=== PATIENT | female | born 1970 | race African-American/Black ===

== ENCOUNTER 2020-11-19 19:36 | Emergency (ER) | payer SELFPAY ==
[2020-11-19] MEDS ORDERED: Ondansetron ODT 4 MG TAB ONE (20:20)
[2020-11-20 23:29] LABS: SARS-CoV-2 PCR by NAA Not Detected (NotDetected)
== END 2020-11-19 20:25 | disposition home or self-care (01) ==
LOC: BURERS 19:36
DX: R11.2 Nausea with vomiting, unspecified (principal); R19.7 Diarrhea, unspecified; R53.1 Weakness; R43.8 Other disturbances of smell and taste; I10 Essential (primary) hypertension; Z20.822 Contact with and (suspected) exposure to COVID-19
CPT/HCPCS: 36416; 99284; Q0162; U0003; U0005

== ENCOUNTER 2020-11-25 12:14 | Emergency (ER) | payer SELFPAY ==
[2020-11-26 18:41] LABS: SARS-CoV-2 PCR by NAA Not Detected (NotDetected)
== END 2020-11-25 13:05 | disposition home or self-care (01) ==
LOC: BURERS 12:14
DX: B34.9 Viral infection, unspecified (principal); Z20.822 Contact with and (suspected) exposure to COVID-19
CPT/HCPCS: 99284; U0003; U0005

== ENCOUNTER 2021-01-06 11:42 | Emergency (ER) | payer BC ==
[~2021-01-06 11:42] MED LIST: NS 0.9% w/ 40 MEQ KCL 1,000 ML BAG IV ONE
[2021-01-06 12:47] LABS: #Basophils 0.1 thou/uL (0.0-0.2); #Monocytes 0.6 thou/uL (0.11-0.59); #Neutrophils 4.9 thou/uL (1.40-6.50); %Basophils 0.9 % (0.0-1.0); %Eosinophils 0.1 % (0.0-10.0); %Lymphocytes 14.7 % (21.0-51.0); %Monocytes 9.1 % (0.0-10.0); %Neutrophils 75.2 % (42.0-75.0); Hemoglobin 13.3 g/dL (12.0-16.0); Mean Corpuscular HGB CONC 36.2 g/dL (32.0-36.0); Mean Corpuscular Hemoglobin 37.3 pg (27.0-31.0); Mean Platelet Volume 7.6 fL (7.4-10.4); Platelet Count 364 thou/uL (130-400); RBC Distribution Width 12.3 % (11.5-14.5); Red Blood Cell (RBC) Count 3.58 mill/uL (4.20-5.40); White Blood Cell (WBC) Count 6.5 thou/uL (4.8-10.8)
[2021-01-06 12:49] LABS: ALT (SGPT) 13 U/L (8-55); AST (SGOT) 23 U/L (5-34); Albumin 4.3 g/dL (3.5-5.0); Alkaline Phosphatase 45 U/L (40-110); Anion Gap 23 mmol/L (10-20); BUN (Urea Nitrogen) 30 mg/dL (9.8-20.1); Bilirubin, Total 1.7 mg/dL (0.2-1.2); Calc. Creatinine Clearance 0 mL/min (70-130); Calcium 9.4 mg/dL (7.8-10.44); Carbon Dioxide 38 mmol/L (22-29); Glucose 119 mg/dL (70-105); Protein, Total 7.3 g/dL (6.0-8.3)
[2021-01-06 12:52] LABS: Chloride 81 mmol/L (98-107); Sodium 140 mmol/L (136-145)
[2021-01-06 13:00] LABS: MDiff Complete? YES; Macrocytosis SLIGHT = 6-15 cells (100X) (0-5/hpf); Platelet Morphology Comment Appears Adequate
[2021-01-06 13:04] LABS: Potassium 1.7 mmol/L (3.5-5.1)
[2021-01-06] MEDS ORDERED: Potassium Chloride 20 MEQ TAB ONE ×2 (13:08→13:11)
[2021-01-06 13:29] LABS: Magnesium 1.4 mg/dL (1.6-2.6)
[2021-01-06] MEDS ORDERED: Magnesium 2 GM/50 ML BAG (IN WATER) ONE (13:48)
== END 2021-01-06 16:30 | disposition home or self-care (01) ==
LOC: BURERS 11:42
DX: E87.6 Hypokalemia (principal); I10 Essential (primary) hypertension
CPT/HCPCS: 36415; 70450; 71045; 80053; 83735; 83880; 84484; 85025; 93005; 96365; J3475; J3480

== ENCOUNTER 2021-01-15 20:19 | Emergency (ER) | payer BC ==
[2021-01-15] MEDS ORDERED: traMADol HCl 50 MG TAB ONE (21:06)
[2021-01-15] MEDS ORDERED: Ketorolac Tromethamine 30 MG/ML VIAL ONE (21:06)
== END 2021-01-15 21:11 | disposition home or self-care (01) ==
LOC: BURERS 20:19
DX: G62.9 Polyneuropathy, unspecified (principal); G89.29 Other chronic pain; I10 Essential (primary) hypertension
CPT/HCPCS: 96372; 99283; J1885

== ENCOUNTER 2021-01-24 13:52 | Emergency (ER) | payer BC ==
[2021-01-24] MEDS ORDERED: Ketorolac Tromethamine 30 MG/ML VIAL ONE (14:29)
[2021-01-24 14:31] LABS: #Basophils 0.1 thou/uL (0.0-0.2); #Eosinphils 0.3 thou/uL (0.0-0.7); #Lymphocytes 1.6 thou/uL (1.20-3.40); #Monocytes 0.3 thou/uL (0.11-0.59); #Neutrophils 3.4 thou/uL (1.40-6.50); %Basophils 1.2 % (0.0-1.0); %Eosinophils 4.6 % (0.0-10.0); %Monocytes 5.7 % (0.0-10.0); %Neutrophils 60.4 % (42.0-75.0); Hemoglobin 11.1 g/dL (12.0-16.0); Mean Corpuscular HGB CONC 33.9 g/dL (32.0-36.0); Mean Corpuscular Hemoglobin 36.9 pg (27.0-31.0); Mean Platelet Volume 5.6 fL (7.4-10.4); Platelet Count 557 thou/uL (130-400); RBC Distribution Width 14.5 % (11.5-14.5); Red Blood Cell (RBC) Count 3.01 mill/uL (4.20-5.40); White Blood Cell (WBC) Count 5.5 thou/uL (4.8-10.8)
[2021-01-24 14:49] LABS: ALT (SGPT) 15 U/L (8-55); AST (SGOT) 26 U/L (5-34); Albumin 3.4 g/dL (3.5-5.0); Alcohol 147 mg/dL (Less than 10); Alkaline Phosphatase 66 U/L (40-110); Anion Gap 19 mmol/L (10-20); BUN (Urea Nitrogen) 17 mg/dL (9.8-20.1); Bilirubin, Total 0.6 mg/dL (0.2-1.2); Calc. Creatinine Clearance 0 mL/min (70-130); Calcium 9.9 mg/dL (7.8-10.44); Carbon Dioxide 26 mmol/L (22-29); Chloride 105 mmol/L (98-107); Globulin 3.4 g/dL (2.4-3.5); Glucose 94 mg/dL (70-105); Potassium 3.2 mmol/L (3.5-5.1); Protein, Total 6.8 g/dL (6.0-8.3); Sodium 147 mmol/L (136-145)
[2021-01-24] MEDS ORDERED: traMADol HCl 50 MG TAB ONE (15:06)
[2021-01-24] MEDS ORDERED: Thiamine HCl 200 MG/2 ML VIAL ONE (15:06)
[2021-01-24 15:10] LABS: MDiff Complete? YES; Macrocytosis MODERATE=16-30 cells (100X) (0-5/hpf); Platelet Morphology Comment Appears Increased
== END 2021-01-24 15:33 | disposition home or self-care (01) ==
LOC: BURERS 13:52
DX: G62.9 Polyneuropathy, unspecified (principal); F10.129 Alcohol abuse with intoxication, unspecified; I10 Essential (primary) hypertension; E87.6 Hypokalemia; Z79.899 Other long term (current) drug therapy
CPT/HCPCS: 80053; 80307; 85025; 96374; 96375; J1885; J3411

== ENCOUNTER 2021-01-28 13:54 | Emergency (ER) | payer BC ==
[2021-01-28] MEDS ORDERED: Thiamine HCl 200 MG/2 ML VIAL ONE (14:38)
[2021-01-28 15:11] LABS: #Eosinphils 0.1 thou/uL (0.0-0.7); #Monocytes 0.4 thou/uL (0.11-0.59); %Basophils 0.6 % (0.0-1.0); %Eosinophils 1.9 % (0.0-10.0); %Monocytes 5.8 % (0.0-10.0); %Neutrophils 76.7 % (42.0-75.0); Hemoglobin 9.1 g/dL (12.0-16.0); Mean Corpuscular Hemoglobin 36.9 pg (27.0-31.0); Mean Platelet Volume 5.4 fL (7.4-10.4); Platelet Count 376 thou/uL (130-400); RBC Distribution Width 14.9 % (11.5-14.5); Red Blood Cell (RBC) Count 2.46 mill/uL (4.20-5.40); White Blood Cell (WBC) Count 6.6 thou/uL (4.8-10.8)
[2021-01-28 15:12] LABS: MDiff Complete? YES
[2021-01-28 15:19] LABS: ALT (SGPT) 11 U/L (8-55); AST (SGOT) 20 U/L (5-34); Albumin 2.9 g/dL (3.5-5.0); Alkaline Phosphatase 54 U/L (40-110); Anion Gap 14 mmol/L (10-20); BUN (Urea Nitrogen) 17 mg/dL (9.8-20.1); Bilirubin, Total 1.5 mg/dL (0.2-1.2); Calc. Creatinine Clearance 0 mL/min (70-130); Calcium 8.2 mg/dL (7.8-10.44); Carbon Dioxide 22 mmol/L (22-29); Chloride 108 mmol/L (98-107); Globulin 2.6 g/dL (2.4-3.5); Glucose 98 mg/dL (70-105); Lipase 120 U/L (8-78); Magnesium 1.5 mg/dL (1.6-2.6); Potassium 3.6 mmol/L (3.5-5.1); Protein, Total 5.5 g/dL (6.0-8.3); Sodium 140 mmol/L (136-145)
== END 2021-01-28 15:36 | disposition home or self-care (01) ==
LOC: BURERS 13:54
DX: R55 Syncope and collapse (principal); I10 Essential (primary) hypertension; Z79.899 Other long term (current) drug therapy
CPT/HCPCS: 36415; 80053; 83690; 83735; 85025; 96374; J3411

== ENCOUNTER 2021-05-30 23:30 | Emergency (ER) | payer BC, SELFPAY ==
[2021-05-31 01:01] LABS: #Monocytes 0.5 thou/uL (0.11-0.59); #Neutrophils 3.9 thou/uL (1.40-6.50); %Basophils 0.7 % (0.0-1.0); %Eosinophils 0.1 % (0.0-10.0); %Lymphocytes 17.6 % (21.0-51.0); %Monocytes 9.5 % (0.0-10.0); %Neutrophils 72.1 % (42.0-75.0); Hemoglobin 11.2 g/dL (12.0-16.0); Mean Corpuscular HGB CONC 33.8 g/dL (32.0-36.0); Mean Corpuscular Hemoglobin 36.1 pg (27.0-31.0); Mean Platelet Volume 9.2 fL (7.4-10.4); Platelet Count 113 thou/uL (130-400); RBC Distribution Width 14.8 % (11.5-14.5); White Blood Cell (WBC) Count 5.5 thou/uL (4.8-10.8)
[2021-05-31 01:05] LABS: ALT (SGPT) 25 U/L (8-55); AST (SGOT) 104 U/L (5-34); Albumin 4.1 g/dL (3.5-5.0); Alkaline Phosphatase 70 U/L (40-110); Anion Gap 39 mmol/L (10-20); BUN (Urea Nitrogen) 11 mg/dL (9.8-20.1); Bilirubin, Total 3.4 mg/dL (0.2-1.2); Calc. Creatinine Clearance 0 mL/min (70-130); Calcium 9.7 mg/dL (7.8-10.44); Carbon Dioxide 19 mmol/L (22-29); Chloride 86 mmol/L (98-107); Globulin 3.6 g/dL (2.4-3.5); Glucose 66 mg/dL (70-105); Potassium 3.2 mmol/L (3.5-5.1); Protein, Total 7.7 g/dL (6.0-8.3); Sodium 141 mmol/L (136-145)
[2021-05-31 01:23] LABS: CKMB 0.9 ng/mL (0-6.6)
[2021-05-31 03:16] LABS: MDiff Complete? YES; Macrocytosis MODERATE=16-30 cells (100X) (0-5/hpf); Platelet Morphology Comment Appears Decreased
[2021-05-31 03:35] LABS: Troponin I 0.059 ng/mL (< 0.028)
[2021-05-31 05:19] LABS: Bilirubin Negative (Negative); Blood, Urine Trace (Negative); Clarity Clear (Clear); Glucose, Urine (Dipstick) Negative (Negative); Ketone, Urine > or equal to 80 mg/dL (Negative); Leukocyte Trace (Negative); Nitrite Positive (Negative); Protein, Urine (Dipstick) 30 mg/dL (Neg-Trace)
[2021-05-31 05:20] LABS: Bacteria/HPF 2+ HPF (None Seen); RBC/HPF 0-3 HPF (0-3); Squamous Epithelial 0-3 HPF (0-3); WBC/HPF 0-3 HPF (0-3)
[2021-05-31] MEDS ORDERED: Morphine 4 MG/ML VIAL ONE (06:06)
[2021-05-31 07:16] LABS: Troponin I 0.085 ng/mL (< 0.028)
[2021-05-31] MEDS ORDERED: Aspirin Chewable 81 MG TAB ONE (08:59)
[2021-05-31] MEDS ORDERED: Sodium Chloride 0.9% 100 ML ONE (09:45)
[2021-05-31] MEDS ORDERED: cefTRIAXone\\ROCEPHIN 1 GM VIAL ONE (09:45)
== END 2021-05-31 11:36 | disposition short-term general hospital (02) ==
LOC: BURERS 23:30
DX: E86.0 Dehydration (principal); K85.90 Acute pancreatitis without necrosis or infection, unspecified; N39.0 Urinary tract infection, site not specified; R53.1 Weakness; R77.8 Other specified abnormalities of plasma proteins; R00.0 Tachycardia, unspecified; I10 Essential (primary) hypertension
CPT/HCPCS: 36415; 36416; 71045; 71275; 80053; 81003; 81015; 82553; 83690; 83880; 84484; 85025; 87077; 87086; 87186; 93005; 96374; 96375; J0696; J2270; J3490

== ENCOUNTER 2021-09-04 13:26 | Emergency (ER) | payer BC ==
[2021-09-04 14:24] LABS: #Basophils 0.1 thou/uL (0.0-0.2); #Eosinphils 0.1 thou/uL (0.0-0.7); #Monocytes 0.3 thou/uL (0.11-0.59); #Neutrophils 2.2 thou/uL (1.40-6.50); %Basophils 1.2 % (0.0-1.0); %Eosinophils 1.7 % (0.0-10.0); %Lymphocytes 42.9 % (21.0-51.0); %Monocytes 6.7 % (0.0-10.0); %Neutrophils 47.5 % (42.0-75.0); Hemoglobin 13.5 g/dL (12.0-16.0); Mean Corpuscular HGB CONC 35.8 g/dL (32.0-36.0); Mean Corpuscular Hemoglobin 36.3 pg (27.0-31.0); Mean Platelet Volume 7.5 fL (7.4-10.4); Platelet Count 259 thou/uL (130-400); RBC Distribution Width 14.1 % (11.5-14.5); Red Blood Cell (RBC) Count 3.72 mill/uL (4.20-5.40); White Blood Cell (WBC) Count 4.7 thou/uL (4.8-10.8)
[2021-09-04 14:38] LABS: MDiff Complete? YES; Macrocytosis SLIGHT = 6-15 cells (100X) (0-5/hpf); Tear Drops SLIGHT = 2-5 cells (100X) (0-1/hpf)
[2021-09-04 14:45] LABS: ALT (SGPT) 12 U/L (8-55); AST (SGOT) 25 U/L (5-34); Albumin 3.2 g/dL (3.5-5.0); Alkaline Phosphatase 49 U/L (40-110); Anion Gap 14 mmol/L (10-20); BUN (Urea Nitrogen) 10 mg/dL (9.8-20.1); Bilirubin, Total 1.8 mg/dL (0.2-1.2); Calc. Creatinine Clearance 0 mL/min (70-130); Calcium 8.5 mg/dL (7.8-10.44); Carbon Dioxide 31 mmol/L (22-29); Chloride 98 mmol/L (98-107); Estimated GFR 34; Globulin 2.9 g/dL (2.4-3.5); Glucose 78 mg/dL (70-105); Magnesium 1.6 mg/dL (1.6-2.6); Protein, Total 6.1 g/dL (6.0-8.3); Sodium 141 mmol/L (136-145)
[2021-09-04 15:22] LABS: Potassium 1.7 mmol/L (3.5-5.1)
[2021-09-04 16:09] LABS: Bilirubin Negative (Negative); Blood, Urine Negative (Negative); Clarity Clear (Clear); Glucose, Urine (Dipstick) Negative (Negative); Ketone, Urine Negative (Negative); Leukocyte Small (Negative); Nitrite Negative (Negative); Protein, Urine (Dipstick) Negative (Neg-Trace); Specific Gravity, Urine 1.015 (1.005-1.030); Urobilinogen 0.2 mg/dL (Less than 2)
[2021-09-04 16:18] LABS: Bacteria/HPF Rare-Few HPF (None Seen); RBC/HPF 0-3 HPF (0-3); Squamous Epithelial 0-3 HPF (0-3); Trichomonas/HPF Rare HPF (None Seen); WBC/HPF 0-3 HPF (0-3)
[2021-09-04 16:19] LABS: Anion Gap 14 mmol/L (10-20); BUN (Urea Nitrogen) 9 mg/dL (9.8-20.1); Calc. Creatinine Clearance 0 mL/min (70-130); Calcium 7.8 mg/dL (7.8-10.44); Carbon Dioxide 28 mmol/L (22-29); Chloride 100 mmol/L (98-107); Estimated GFR 41; Glucose 123 mg/dL (70-105); Sodium 140 mmol/L (136-145)
[2021-09-04 16:27] LABS: Potassium 1.7 mmol/L (3.5-5.1)
[2021-09-04] MEDS ORDERED: Acetaminophen 500 MG TAB ONE (16:35)
[2021-09-04] MEDS ORDERED: Potassium Chloride 20 MEQ TAB ONE (16:35)
== END 2021-09-04 16:38 | disposition left against medical advice (07) ==
LOC: BURERS 13:26
DX: E87.6 Hypokalemia (principal); I10 Essential (primary) hypertension; E11.9 Type 2 diabetes mellitus without complications
CPT/HCPCS: 36415; 80053; 81003; 81015; 83735; 84443; 84484; 85025; 93005; 96360

== ENCOUNTER 2022-02-19 19:51 | Emergency (ER) | payer BC ==
[2022-02-19] MEDS ORDERED: Ibuprofen 200 MG TAB ONE (21:29)
== END 2022-02-19 22:04 | disposition home or self-care (01) ==
LOC: BURERS 19:51
DX: S80.11XA Contusion of right lower leg, initial encounter (principal); S60.221A Contusion of right hand, initial encounter; I10 Essential (primary) hypertension; E11.9 Type 2 diabetes mellitus without complications; Z79.899 Other long term (current) drug therapy; V89.2XXA Person injured in unspecified motor-vehicle accident, traffic, initial encounter

== ENCOUNTER 2022-03-06 01:39 | Emergency (ER) | payer BC | END 2022-03-06 02:40 | disposition home or self-care (01) | LOC: BURERS 01:39 | DX: Z00.00 Encounter for general adult medical examination without abnormal findings (principal); E11.9 Type 2 diabetes mellitus without complications; I10 Essential (primary) hypertension; Z79.899 Other long term (current) drug therapy | CPT/HCPCS: 36416; 99283 ==

== ENCOUNTER 2022-03-16 16:47 | Emergency (ER) | payer BC ==
[2022-03-16 17:40] LABS: #Basophils 0.1 thou/uL (0.0-0.2); #Eosinphils 0.1 thou/uL (0.0-0.7); #Lymphocytes 1.6 thou/uL (1.20-3.40); #Monocytes 0.4 thou/uL (0.11-0.59); #Neutrophils 4.4 thou/uL (1.40-6.50); %Basophils 0.8 % (0.0-1.0); %Eosinophils 1.4 % (0.0-10.0); %Lymphocytes 24.4 % (21.0-51.0); %Monocytes 6.5 % (0.0-10.0); %Neutrophils 66.9 % (42.0-75.0); Hemoglobin 12.7 g/dL (12.0-16.0); Mean Corpuscular HGB CONC 33.9 g/dL (32.0-36.0); Mean Corpuscular Hemoglobin 39.8 pg (27.0-31.0); Mean Platelet Volume 6.8 fL (7.4-10.4); Platelet Count 178 10x3/uL (130-400); Red Blood Cell (RBC) Count 3.18 mill/uL (4.20-5.40); White Blood Cell (WBC) Count 6.6 10x3/uL (4.8-10.8)
[2022-03-16 17:51] LABS: INR-International Normal Ratio 0.9; Prothrombin Time 12.7 sec (12.0-14.7)
[2022-03-16 17:58] LABS: ALT (SGPT) 17 U/L (8-55); AST (SGOT) 55 U/L (5-34); Acetaminophen Less than 10.0 mcg/mL (10.0-30.0); Albumin 4.2 g/dL (3.5-5.0); Alcohol 284 mg/dL (Less than 10); Alkaline Phosphatase 114 U/L (40-110); Anion Gap 22 mmol/L (10-20); BUN (Urea Nitrogen) 15 mg/dL (9.8-20.1); Calc. Creatinine Clearance 0 mL/min (70-130); Calcium 9.6 mg/dL (7.8-10.44); Carbon Dioxide 21 mmol/L (22-29); Chloride 105 mmol/L (98-107); Estimated GFR 69; Globulin 3.6 g/dL (2.4-3.5); Glucose 72 mg/dL (70-105); Potassium 3.6 mmol/L (3.5-5.1); Protein, Total 7.8 g/dL (6.0-8.3); Salicylate Less than 8.0 mg/dL (15.0-30.0); Sodium 144 mmol/L (136-145)
[2022-03-16 18:14] LABS: MDiff Complete? YES; Macrocytosis SLIGHT = 6-15 cells (100X) (0-5/hpf); Platelet Morphology Comment Appears Adequate
[2022-03-16] MEDS ORDERED: Lidocaine 4% Cream 5 GM TUBE w/ Tegaderm ONE (18:21)
[2022-03-16] MEDS ORDERED: Bacitracin 1 PK ONE (19:21)
[2022-03-16] MEDS ORDERED: Cephalexin 250 MG CAP ONE (19:29)
== END 2022-03-16 19:33 | disposition home or self-care (01) ==
LOC: BURERS 16:47
DX: S09.90XA Unspecified injury of head, initial encounter (principal); S00.81XA Abrasion of other part of head, initial encounter; S81.812A Laceration without foreign body, left lower leg, initial encounter; I10 Essential (primary) hypertension; E11.42 Type 2 diabetes mellitus with diabetic polyneuropathy; W18.00XA Striking against unspecified object with subsequent fall, initial encounter; Z79.899 Other long term (current) drug therapy
CPT/HCPCS: 36415; 70450; 72125; 80053; 80307; 85025; 85610

== ENCOUNTER 2022-03-25 02:36 | Emergency (ER) | payer BC ==
[2022-03-25] MEDS ORDERED: Bacitracin 1 PK ONE (02:45)
[2022-03-25] MEDS ORDERED: Acetaminophen 325 MG TAB ONE (02:45)
[2022-03-25] MEDS ORDERED: Doxycycline 100 MG CAP ONE (03:01)
[2022-03-25] MEDS ORDERED: Boostrix 0.5 ML (Tdap) VIAL (>/=7 yrs of age) ONE (03:17)
== END 2022-03-25 03:37 | disposition home or self-care (01) ==
LOC: BURERS 02:36
DX: S00.81XA Abrasion of other part of head, initial encounter (principal); S80.812A Abrasion, left lower leg, initial encounter; L08.9 Local infection of the skin and subcutaneous tissue, unspecified; E11.9 Type 2 diabetes mellitus without complications; I10 Essential (primary) hypertension; Z79.899 Other long term (current) drug therapy; X58.XXXA Exposure to other specified factors, initial encounter
CPT/HCPCS: 90471; 90715

== ENCOUNTER 2022-06-19 14:08 | Emergency (ER) | payer BC ==
[2022-06-19] MEDS ORDERED: Ketorolac Tromethamine 30 MG/ML VIAL ONE (15:03)
[2022-06-19] MEDS ORDERED: Ondansetron PF 4 MG/2 ML Vial ONE (15:03)
[2022-06-19 15:15] LABS: Hemoglobin 12.2 g/dL (12.0-16.0); Mean Corpuscular HGB CONC 32.3 g/dL (32.0-36.0); Mean Corpuscular Hemoglobin 40.3 pg (27.0-31.0); Mean Platelet Volume 6.9 fL (7.4-10.4); Platelet Count 284 10x3/uL (130-400); RBC Distribution Width 13.8 % (11.5-14.5); Red Blood Cell (RBC) Count 3.02 mill/uL (4.20-5.40)
[2022-06-19 15:27] LABS: ALT (SGPT) 20 U/L (8-55); AST (SGOT) 64 U/L (5-34); Albumin 4.2 g/dL (3.5-5.0); Alkaline Phosphatase 83 U/L (40-110); Anion Gap 23 mmol/L (10-20); BUN (Urea Nitrogen) 8 mg/dL (9.8-20.1); Bilirubin, Total 2.1 mg/dL (0.2-1.2); Calc. Creatinine Clearance 0 mL/min (70-130); Calcium 9.1 mg/dL (7.8-10.44); Carbon Dioxide 21 mmol/L (22-29); Chloride 96 mmol/L (98-107); Estimated GFR 68; Globulin 3.5 g/dL (2.4-3.5); Glucose 68 mg/dL (70-105); Lipase 76 U/L (8-78); Potassium 3.7 mmol/L (3.5-5.1); Protein, Total 7.7 g/dL (6.0-8.3); Sodium 136 mmol/L (136-145)
[2022-06-19 15:40] LABS: Band 2 % (5-11); Eosinophils 2 % (0-10); Lymphocytes 22 % (21-51); MDiff Complete? YES; Macrocytosis MARKED = >30 cells (100X) (0-5/hpf); Monocytes 8 % (0-10); Neutrophil 66 % (42-75); Reflex for Review?? NO
[2022-06-19 18:08] LABS: Lactic Acid 5.1 mmol/L (0.5-2.2)
== END 2022-06-19 18:21 | disposition home or self-care (01) ==
LOC: BURERS 14:08
DX: A08.4 Viral intestinal infection, unspecified (principal); E87.20 Acidosis, unspecified; I10 Essential (primary) hypertension; E11.42 Type 2 diabetes mellitus with diabetic polyneuropathy
CPT/HCPCS: 36415; 71045; 74177; 80053; 80307; 83605; 83690; 84484; 85025; 93005; 96361; 96374; 96375; J1885; J2405

== ENCOUNTER 2022-06-25 11:47 | Emergency (ER) | payer BC ==
[2022-06-25] MEDS ORDERED: Promethazine HCl 25 MG/ML VIAL ONE (12:24)
[2022-06-25 12:37] LABS: #Basophils 0.1 thou/uL (0.0-0.2); #Eosinphils 0.1 thou/uL (0.0-0.7); #Lymphocytes 1.2 thou/uL (1.20-3.40); #Monocytes 0.5 thou/uL (0.11-0.59); #Neutrophils 3.5 thou/uL (1.40-6.50); %Basophils 1.5 % (0.0-1.0); %Eosinophils 1.9 % (0.0-10.0); %Lymphocytes 22.5 % (21.0-51.0); %Monocytes 8.6 % (0.0-10.0); %Neutrophils 65.5 % (42.0-75.0); Hemoglobin 11.9 g/dL (12.0-16.0); Mean Corpuscular HGB CONC 32.8 g/dL (32.0-36.0); Mean Corpuscular Hemoglobin 40.4 pg (27.0-31.0); Mean Platelet Volume 7.4 fL (7.4-10.4); Platelet Count 275 10x3/uL (130-400); Red Blood Cell (RBC) Count 2.94 mill/uL (4.20-5.40); White Blood Cell (WBC) Count 5.4 10x3/uL (4.8-10.8)
[2022-06-25 12:55] LABS: ALT (SGPT) 17 U/L (8-55); AST (SGOT) 28 U/L (5-34); Alkaline Phosphatase 68 U/L (40-110); Anion Gap 15 mmol/L (10-20); BUN (Urea Nitrogen) 8 mg/dL (9.8-20.1); Bilirubin, Total 1.7 mg/dL (0.2-1.2); Calc. Creatinine Clearance 0 mL/min (70-130); Calcium 9.4 mg/dL (7.8-10.44); Carbon Dioxide 26 mmol/L (22-29); Chloride 102 mmol/L (98-107); Estimated GFR 52; Globulin 3.2 g/dL (2.4-3.5); Glucose 97 mg/dL (70-105); Lipase 48 U/L (8-78); Potassium 3.2 mmol/L (3.5-5.1); Protein, Total 7.2 g/dL (6.0-8.3); Sodium 140 mmol/L (136-145)
[2022-06-25 12:57] LABS: MDiff Complete? YES; Macrocytosis MODERATE=16-30 cells (100X) (0-5/hpf); Platelet Morphology Comment Appears Adequate
[2022-06-25] MEDS ORDERED: Potassium Chloride 20 MEQ TAB ONE (13:06)
[2022-06-25 14:29] LABS: Bilirubin Negative (Negative); Blood, Urine Trace (Negative); Clarity Slightly Cloudy (Clear); Glucose, Urine (Dipstick) Negative (Negative); Ketone, Urine Negative (Negative); Leukocyte Large (Negative); Nitrite Negative (Negative); Protein, Urine (Dipstick) Negative (Neg-Trace); Specific Gravity, Urine 1.015 (1.005-1.030)
[2022-06-25 14:39] LABS: Bacteria/HPF 4+ HPF (None Seen); RBC/HPF 0-3 HPF (0-3)
[2022-06-25 15:32] LABS: Lactic Acid 2.3 mmol/L (0.5-2.2)
== END 2022-06-25 16:35 | disposition home or self-care (01) ==
LOC: BURERS 11:47
DX: N39.0 Urinary tract infection, site not specified (principal); E86.0 Dehydration; E87.6 Hypokalemia; E11.9 Type 2 diabetes mellitus without complications; I10 Essential (primary) hypertension
CPT/HCPCS: 36415; 80053; 81003; 81015; 83605; 83690; 84484; 85025; 87077; 87086; 87804; 93005; 96361; 96365; J2550

== ENCOUNTER 2022-07-06 21:38 | Emergency (ER) | payer BC ==
[2022-07-06 22:38] LABS: #Eosinphils 0.1 thou/uL (0.0-0.7); #Lymphocytes 1.2 thou/uL (1.20-3.40); #Monocytes 0.6 thou/uL (0.11-0.59); #Neutrophils 3.7 thou/uL (1.40-6.50); %Basophils 0.7 % (0.0-1.0); %Eosinophils 1.6 % (0.0-10.0); %Lymphocytes 20.7 % (21.0-51.0); %Monocytes 11.2 % (0.0-10.0); %Neutrophils 65.8 % (42.0-75.0); Hemoglobin 9.9 g/dL (12.0-16.0); MDiff Complete? YES; Macrocytosis SLIGHT = 6-15 cells (100X) (0-5/hpf); Mean Corpuscular Hemoglobin 38.8 pg (27.0-31.0); Mean Platelet Volume 7.1 fL (7.4-10.4); Platelet Count 270 10x3/uL (130-400); Red Blood Cell (RBC) Count 2.55 mill/uL (4.20-5.40); White Blood Cell (WBC) Count 5.6 10x3/uL (4.8-10.8)
[2022-07-06 22:47] LABS: ALT (SGPT) 18 U/L (8-55); AST (SGOT) 27 U/L (5-34); Acetaminophen Less than 10.0 mcg/mL (10.0-30.0); Alcohol Less than 10 mg/dL (Less than 10); Alkaline Phosphatase 47 U/L (40-110); Anion Gap 15 mmol/L (10-20); BUN (Urea Nitrogen) 10 mg/dL (9.8-20.1); Bilirubin, Total 1.2 mg/dL (0.2-1.2); Calc. Creatinine Clearance 0 mL/min (70-130); Calcium 7.8 mg/dL (7.8-10.44); Carbon Dioxide 18 mmol/L (22-29); Chloride 109 mmol/L (98-107); Estimated GFR 45; Globulin 2.6 g/dL (2.4-3.5); Glucose 87 mg/dL (70-105); Protein, Total 5.6 g/dL (6.0-8.3); Salicylate Less than 8.0 mg/dL (15.0-30.0); Sodium 139 mmol/L (136-145)
[2022-07-06] MEDS ORDERED: Potassium Chloride 20 MEQ/100 ML PREMIX BAG ONE (23:20)
[2022-07-06] MEDS ORDERED: Potassium Chloride 20 MEQ TAB ONE (23:20)
[2022-07-06 23:49] LABS: Bilirubin Negative (Negative); Blood, Urine Negative (Negative); Clarity Clear (Clear); Glucose, Urine (Dipstick) Negative (Negative); Ketone, Urine Negative (Negative); Leukocyte Negative (Negative); Nitrite Negative (Negative); Protein, Urine (Dipstick) Negative (Neg-Trace); Urobilinogen 0.2 mg/dL (Less than 2); pH, Urine 5.5 (5.0-9.0)
[2022-07-06 23:58] LABS: Amphetamine Not Detected (NotDetected); Barbiturates Screen Not Detected (NotDetected); Benzodiazepine Screen Not Detected (NotDetected); Cocaine Metabolite Screen Not Detected (NotDetected); Methadone Not Detected (NotDetected); Methamphetamine Not Detected (NotDetected); Opiate Screen Not Detected (NotDetected); Oxycodone Screen Not Detected (NotDetected); Phencyclidine (PCP) Not Detected (NotDetected); THC/Cannabinoid Screen Not Detected (NotDetected); Tricyclic Screen Not Detected (NotDetected)
== END 2022-07-07 00:09 | disposition home or self-care (01) ==
LOC: BURERS 21:38
DX: D50.9 Iron deficiency anemia, unspecified (principal); E87.6 Hypokalemia; I10 Essential (primary) hypertension; E11.42 Type 2 diabetes mellitus with diabetic polyneuropathy; R29.702 NIHSS score 2; Z79.899 Other long term (current) drug therapy
CPT/HCPCS: 36415; 51701; 71045; 80053; 80306; 80307; 81003; 84484; 85025; 93005; 96360; J3480

== ENCOUNTER 2022-07-18 16:58 | Emergency (ER) | payer BC ==
[2022-07-18] MEDS ORDERED: Meclizine HCl 25 MG TAB ONE (17:42)
[2022-07-18] MEDS ORDERED: Ondansetron PF 4 MG/2 ML Vial ONE (17:42)
[2022-07-18 18:07] LABS: Mean Corpuscular HGB CONC 31.4 g/dL (32.0-36.0); Mean Corpuscular Hemoglobin 36.8 pg (27.0-31.0); Mean Platelet Volume 7.6 fL (7.4-10.4); Platelet Count 231 10x3/uL (130-400); RBC Distribution Width 13.2 % (11.5-14.5); Red Blood Cell (RBC) Count 3.26 mill/uL (4.20-5.40); White Blood Cell (WBC) Count 8.6 10x3/uL (4.8-10.8)
[2022-07-18 18:19] LABS: ALT (SGPT) 9 U/L (8-55); AST (SGOT) 17 U/L (5-34); Albumin 3.2 g/dL (3.5-5.0); Alkaline Phosphatase 48 U/L (40-110); Anion Gap 18 mmol/L (10-20); BUN (Urea Nitrogen) 19 mg/dL (9.8-20.1); Bilirubin, Total 0.9 mg/dL (0.2-1.2); Calc. Creatinine Clearance 0 mL/min (70-130); Calcium 8.2 mg/dL (7.8-10.44); Carbon Dioxide 19 mmol/L (22-29); Chloride 110 mmol/L (98-107); Estimated GFR 72; Globulin 3.2 g/dL (2.4-3.5); Glucose 68 mg/dL (70-105); Potassium 4.4 mmol/L (3.5-5.1); Protein, Total 6.4 g/dL (6.0-8.3); Sodium 143 mmol/L (136-145)
[2022-07-18 18:23] LABS: Band 3 % (5-11); Lymphocytes 11 % (21-51); MDiff Complete? YES; Macrocytosis SLIGHT = 6-15 cells (100X) (0-5/hpf); Monocytes 3 % (0-10); Neutrophil 83 % (42-75); Platelet Morphology Comment Appears Adequate
[2022-07-18 23:35] LABS: Bilirubin Small (Negative); Blood, Urine Negative (Negative); Clarity Clear (Clear); Glucose, Urine (Dipstick) Negative (Negative); Ketone, Urine 40 mg/dL (Negative); Leukocyte Small (Negative); Nitrite Negative (Negative); Protein, Urine (Dipstick) Trace mg/dL (Neg-Trace); Specific Gravity, Urine 1.025 (1.005-1.030); Urobilinogen 0.2 mg/dL (Less than 2); pH, Urine 5.5 (5.0-9.0)
[2022-07-18 23:55] LABS: RBC/HPF None Seen HPF (0-3)
[2022-07-18 23:56] LABS: Bacteria/HPF 1+ HPF (None Seen); Mucous/LPF 1+ LPF (<2+); Squamous Epithelial 0-3 HPF (0-3)
[2022-07-19] MEDS ORDERED: cefTRIAXone (ROCEPHIN) 1 GM VIAL ONE
== END 2022-07-19 00:49 | disposition home or self-care (01) ==
LOC: BURERS 16:58
DX: E86.0 Dehydration (principal); N39.0 Urinary tract infection, site not specified; E11.42 Type 2 diabetes mellitus with diabetic polyneuropathy; I10 Essential (primary) hypertension
CPT/HCPCS: 36415; 70450; 71045; 80053; 81003; 81015; 84443; 84484; 85025; 87086; 93005; 96361; 96365; 96375; J0696; J2405

== ENCOUNTER 2022-09-20 16:18 | Outpatient (CLI) | payer BC | END 2022-09-20 16:19 | disposition home or self-care (01) | LOC: BURRAD 16:18 | PROVIDERS: ATTEND Nurse Practitioner Family | DX: S99.921A Unspecified injury of right foot, initial encounter (principal); S99.922A Unspecified injury of left foot, initial encounter; M85.871 Other specified disorders of bone density and structure, right ankle and foot ==

== ENCOUNTER 2023-08-31 15:43 | Emergency (ER) | payer BC, OTHER ==
[~2023-08-31 15:43] MED LIST changes: +Ketorolac Tromethamine 30 MG (1 mL) VIAL ONE; -NS 0.9% w/ 40 MEQ KCL 1,000 ML BAG IV ONE
== END 2023-08-31 16:21 | disposition home or self-care (01) ==
LOC: BURERS 15:43
DX: E11.42 Type 2 diabetes mellitus with diabetic polyneuropathy (principal); F10.129 Alcohol abuse with intoxication, unspecified; I10 Essential (primary) hypertension
CPT/HCPCS: 96372; 99283; J1885

== ENCOUNTER 2023-09-21 13:29 | Observation (INO) | payer BC, OTHER ==
[2023-09-21] MEDS ORDERED: Diazepam 10 MG/2 ML SYRINGE ONE ×4 (13:53→18:04)
[2023-09-21 14:29] LABS: Hematocrit 34.1 % (36.0-47.0); Hemoglobin 11.2 g/dL (12.0-16.0); Mean Corpuscular HGB CONC 32.9 g/dL (32.0-36.0); Mean Corpuscular Hemoglobin 36.9 pg (27.0-31.0); Mean Platelet Volume 6.8 fL (7.4-10.4); Platelet Count 239 10x3/uL (130-400); RBC Distribution Width 14.4 % (11.5-14.5); Red Blood Cell (RBC) Count 3.04 mill/uL (4.20-5.40); White Blood Cell (WBC) Count 7.8 10x3/uL (4.8-10.8)
[2023-09-21 14:38] LABS: Band 2 % (5-11); Lymphocytes 11 % (21-51); MDiff Complete? YES; Monocytes 4 % (0-10); Neutrophil 82 % (42-75); Nucleated RBC (Manual Ct) 1 % (0)
[2023-09-21 14:48] LABS: ALT (SGPT) 26 U/L (8-55); AST (SGOT) 84 U/L (5-34); Albumin 4.3 g/dL (3.5-5.0); Alkaline Phosphatase 83 U/L (40-110); Anion Gap 28 mmol/L (10-20); BUN (Urea Nitrogen) 8 mg/dL (9.8-20.1); Bilirubin, Total 2.3 mg/dL (0.2-1.2); Calc. Creatinine Clearance 0 mL/min (70-130); Calcium 9.5 mg/dL (7.8-10.44); Carbon Dioxide 11 mmol/L (22-29); Chloride 105 mmol/L (98-107); Estimated GFR 54; Globulin 3.1 g/dL (2.4-3.5); Glucose 84 mg/dL (70-105); Potassium 4.2 mmol/L (3.5-5.1); Protein, Total 7.4 g/dL (6.0-8.3); Sodium 140 mmol/L (136-145)
[2023-09-21] MEDS ORDERED: Folic Acid 5 MG/ML MDV ONE (15:09)
[2023-09-21] MEDS ORDERED: Thiamine HCl 200 MG/2 ML VIAL ONE (15:09)
[2023-09-21] MEDS ORDERED: Multivit, Adult Inj 10 ML VIAL ONE (15:10)
[2023-09-21 15:34] LABS: Bilirubin Negative (Negative); Blood, Urine Negative (Negative); Clarity Clear (Clear); Glucose, Urine (Dipstick) Negative (Negative); Ketone, Urine 15 mg/dL (Negative); Leukocyte Negative (Negative); Nitrite Negative (Negative); Protein, Urine (Dipstick) Negative (Neg-Trace); Specific Gravity, Urine 1.015 (1.005-1.030); Urobilinogen 0.2 mg/dL (Less than 2); pH, Urine 5.5 (5.0-9.0)
[2023-09-21 15:39] LABS: Bacteria/HPF 1+ HPF (None Seen); CAUTI Indications for Culture Dysuria,urgency,freq; RBC/HPF None Seen HPF (0-3); Squamous Epithelial 0-3 HPF (0-3); WBC/HPF None Seen HPF (0-3)
[2023-09-21 15:40] LABS: Urine Culture Reflex No No
[2023-09-21 15:51] LABS: Magnesium 1.4 mg/dL (1.6-2.6)
[2023-09-21] MEDS ORDERED: Magnesium 2 GM/50 ML BAG (IN WATER) ONE (16:07)
[2023-09-21 18:48] VITALS: BP 145/95; TEMP 98.9
[2023-09-21 19:10] VITALS: BMI 2736.4
[2023-09-21] MEDS ORDERED: chlordiazePOXIDE HCl 25 MG CAP PO PRN (19:32)
[2023-09-21] MEDS: Gabapentin 100 MG CAP PO SCH (21:10)
[2023-09-21] MEDS ORDERED: Magnesium 2 GM/50 ML(in water) 2 GM in Premix 1 BAG IVPB SCH (23:00)
[2023-09-21] MEDS ORDERED: Sodium Chloride 0.9% 1,000 ML IV SCH (23:00)
[2023-09-22] MEDS ORDERED: Potassium Chloride 20 MEQ TAB PO SCH (09:00)
[2023-09-22] MEDS ORDERED: Folic Acid 1 MG TAB PO SCH (09:00)
[2023-09-22] MEDS ORDERED: Thiamine 100 MG TAB PO SCH (09:00)
== END 2023-09-21 21:50 | disposition short-term general hospital (02) ==
LOC: BURERS 13:29 → BURMED 16:52
PROVIDERS: ADMIT Family Medicine; ATTEND Family Medicine
DX: E87.29 Other acidosis (principal); F10.239 Alcohol dependence with withdrawal, unspecified; F10.229 Alcohol dependence with intoxication, unspecified; E87.6 Hypokalemia; I10 Essential (primary) hypertension; Z79.899 Other long term (current) drug therapy
CPT/HCPCS: 80053; 81001; 83690; 83735; 85025; 93005; J3360; J3411; J3475

== ENCOUNTER 2023-09-28 14:12 | Emergency (ER) | payer BC, OTHER ==
[2023-09-28 14:45] LABS: #Basophils 0.1 thou/uL (0.0-0.2); #Eosinphils 0.1 thou/uL (0.0-0.7); #Monocytes 0.6 thou/uL (0.11-0.59); #Neutrophils 1.7 thou/uL (1.40-6.50); %Basophils 1.3 % (0.0-1.0); %Eosinophils 2.2 % (0.0-10.0); %Lymphocytes 44.7 % (21.0-51.0); %Monocytes 13.5 % (0.0-10.0); %Neutrophils 38.4 % (42.0-75.0); Hemoglobin 9.7 g/dL (12.0-16.0); Mean Corpuscular HGB CONC 32.3 g/dL (32.0-36.0); Mean Platelet Volume 6.7 fL (7.4-10.4); Platelet Count 177 10x3/uL (130-400); Red Blood Cell (RBC) Count 2.62 mill/uL (4.20-5.40); White Blood Cell (WBC) Count 4.5 10x3/uL (4.8-10.8)
[2023-09-28 15:00] LABS: Acetaminophen Less than 10 mcg/mL (10.0-30.0); Alcohol 289.8 mg/dL (Less than 10); Salicylate Less than 8.0 mg/dL (15.0-30.0)
[2023-09-28 15:02] LABS: ALT (SGPT) 20 U/L (8-55); AST (SGOT) 40 U/L (5-34); Albumin 3.5 g/dL (3.5-5.0); Alkaline Phosphatase 54 U/L (40-110); Anion Gap 17 mmol/L (10-20); BUN (Urea Nitrogen) 8 mg/dL (9.8-20.1); Bilirubin, Total 1.6 mg/dL (0.2-1.2); Calc. Creatinine Clearance 0 mL/min (70-130); Calcium 8.1 mg/dL (7.8-10.44); Carbon Dioxide 19 mmol/L (22-29); Chloride 117 mmol/L (98-107); Estimated GFR 46; Globulin 2.7 g/dL (2.4-3.5); Glucose 82 mg/dL (70-105); Potassium 3.3 mmol/L (3.5-5.1); Protein, Total 6.2 g/dL (6.0-8.3); Sodium 150 mmol/L (136-145)
[2023-09-28 15:07] LABS: Platelet Adequacy Comment Appears Adequate
[2023-09-28 15:09] LABS: MDiff Complete? YES
[2023-09-28 15:36] LABS: Amphetamine Not Detected (NotDetected); Barbiturates Screen Not Detected (NotDetected); Benzodiazepine Screen Detected (NotDetected); Cocaine Metabolite Screen Not Detected (NotDetected); Methadone Not Detected (NotDetected); Methamphetamine Not Detected (NotDetected); Opiate Screen Not Detected (NotDetected); Oxycodone Screen Not Detected (NotDetected); Phencyclidine (PCP) Not Detected (NotDetected); THC/Cannabinoid Screen Not Detected (NotDetected); Tricyclic Screen Not Detected (NotDetected)
== END 2023-09-28 16:02 | disposition home or self-care (01) ==
LOC: BURERS 14:12
DX: F10.129 Alcohol abuse with intoxication, unspecified (principal); E86.0 Dehydration; I10 Essential (primary) hypertension; V43.52XA Car driver injured in collision with other type car in traffic accident, initial encounter; Y92.481 Parking lot as the place of occurrence of the external cause
CPT/HCPCS: 36415; 80053; 80306; 80307; 85025; 93005; 96360

== ENCOUNTER 2023-10-11 10:43 | Emergency (ER) | payer BC, OTHER ==
[2023-10-11 11:24] LABS: Bilirubin Negative (Negative); Blood, Urine Trace (Negative); Clarity Clear (Clear); Glucose, Urine (Dipstick) Negative (Negative); Ketone, Urine 40 mg/dL (Negative); Leukocyte Negative (Negative); Nitrite Negative (Negative); Protein, Urine (Dipstick) 30 mg/dL (Neg-Trace); Urobilinogen 0.2 mg/dL (Less than 2); pH, Urine 5.5 (5.0-9.0)
[2023-10-11 11:33] LABS: Bacteria/HPF Rare-Few HPF (None Seen); CAUTI Indications for Culture Dysuria,urgency,freq; RBC/HPF 0-3 HPF (0-3); Specific Gravity, Urine 1.032 (1.002-1.036); Squamous Epithelial 0-3 HPF (0-3); WBC/HPF 0-3 HPF (0-3)
[2023-10-11 11:34] LABS: Amphetamine Not Detected (NotDetected); Barbiturates Screen Not Detected (NotDetected); Benzodiazepine Screen Detected (NotDetected); Cocaine Metabolite Screen Not Detected (NotDetected); Methadone Not Detected (NotDetected); Methamphetamine Not Detected (NotDetected); Opiate Screen Not Detected (NotDetected); Oxycodone Screen Not Detected (NotDetected); Phencyclidine (PCP) Not Detected (NotDetected); THC/Cannabinoid Screen Not Detected (NotDetected); Tricyclic Screen Not Detected (NotDetected)
[2023-10-11 11:35] LABS: Urine Culture Reflex No No
[2023-10-11 11:39] LABS: #Basophils 0.1 thou/uL (0.0-0.2); #Lymphocytes 0.8 thou/uL (1.20-3.40); #Monocytes 0.6 thou/uL (0.11-0.59); #Neutrophils 10.7 thou/uL (1.40-6.50); %Basophils 0.6 % (0.0-1.0); %Lymphocytes 6.7 % (21.0-51.0); %Monocytes 5.2 % (0.0-10.0); %Neutrophils 87.6 % (42.0-75.0); Hematocrit 32.3 % (36.0-47.0); Hemoglobin 9.8 g/dL (12.0-16.0); MDiff Complete? YES; Macrocytosis MODERATE=16-30 cells (100X) (0-5/hpf); Mean Corpuscular HGB CONC 30.2 g/dL (32.0-36.0); Mean Corpuscular Hemoglobin 36.9 pg (27.0-31.0); Mean Platelet Volume 6.4 fL (7.4-10.4); Platelet Count 180 10x3/uL (130-400); RBC Distribution Width 15.9 % (11.5-14.5); Red Blood Cell (RBC) Count 2.64 mill/uL (4.20-5.40); White Blood Cell (WBC) Count 12.2 10x3/uL (4.8-10.8)
[2023-10-11 11:50] LABS: ALT (SGPT) 33 U/L (8-55); AST (SGOT) 143 U/L (5-34); Albumin 3.5 g/dL (3.5-5.0); Alkaline Phosphatase 67 U/L (40-110); Anion Gap 34 mmol/L (10-20); BUN (Urea Nitrogen) 10 mg/dL (9.8-20.1); Bilirubin, Total 1.4 mg/dL (0.2-1.2); Calc. Creatinine Clearance 0 mL/min (70-130); Calcium 8.2 mg/dL (7.8-10.44); Chloride 112 mmol/L (98-107); Estimated GFR 42; Globulin 2.8 g/dL (2.4-3.5); Glucose 146 mg/dL (70-105); Protein, Total 6.3 g/dL (6.0-8.3); Sodium 150 mmol/L (136-145)
[2023-10-11 11:51] LABS: Acetaminophen Less than 10 mcg/mL (10.0-30.0); Alcohol 62.9 mg/dL (Less than 10); Salicylate Less than 8.0 mg/dL (15.0-30.0)
[2023-10-11 11:55] LABS: Carbon Dioxide 8 mmol/L (22-29)
[2023-10-11] MEDS ORDERED: Sodium Bicarb 50 mEq/50 ML VIAL ONE (12:28)
[2023-10-11 12:54] LABS: Base Excess-Venous -17.9 mmol/L (-2.0 to 3.0); Bicarbonate (HCO3v) 8.5 mmol/L (22.0-28.0); CO2 Tension (PvCO2) 22.2 mmHg (42.0-51.0); Calcium, Ionized 0.98 mmol/L (1.15-1.33); Chloride 117 mmol/L (98-107); Hemoglobin - Calc 12.6 g/dL (12.0-16.0); Sodium 144 mmol/L (138-145); T. Carbon Dioxide 9.2 mmol/L (22.0-28.0); vO2 Saturation-calc 90.1 % (60.0-85.0)
[2023-10-11] MEDS ORDERED: Lorazepam 2 MG/ML VIAL ONE (13:41)
== END 2023-10-11 15:26 | disposition home or self-care (01) ==
LOC: BURERS 10:43
DX: E11.649 Type 2 diabetes mellitus with hypoglycemia without coma (principal); E11.10 Type 2 diabetes mellitus with ketoacidosis without coma; D64.9 Anemia, unspecified; F10.20 Alcohol dependence, uncomplicated; E11.40 Type 2 diabetes mellitus with diabetic neuropathy, unspecified; I10 Essential (primary) hypertension
CPT/HCPCS: 36416; 71045; 80053; 80306; 80307; 81001; 82330; 82803; 84484; 85025; 93005; 94760; 96365; 96375; 36415-59; J2060

== ENCOUNTER 2023-10-23 20:19 | Emergency (ER) | payer BC, OTHER ==
[2023-10-23 22:16] LABS: #Basophils 0.1 thou/uL (0.0-0.2); #Eosinphils 0.3 thou/uL (0.0-0.7); #Lymphocytes 2.2 thou/uL (1.20-3.40); #Monocytes 0.3 thou/uL (0.11-0.59); #Neutrophils 1.5 thou/uL (1.40-6.50); %Basophils 1.8 % (0.0-1.0); %Eosinophils 6.9 % (0.0-10.0); %Lymphocytes 49.6 % (21.0-51.0); %Monocytes 6.3 % (0.0-10.0); %Neutrophils 35.4 % (42.0-75.0); Hematocrit 37.3 % (36.0-47.0); Mean Corpuscular HGB CONC 32.2 g/dL (32.0-36.0); Mean Corpuscular Hemoglobin 37.4 pg (27.0-31.0); Mean Platelet Volume 6.1 fL (7.4-10.4); Platelet Count 282 10x3/uL (130-400); RBC Distribution Width 14.2 % (11.5-14.5); Red Blood Cell (RBC) Count 3.22 mill/uL (4.20-5.40); White Blood Cell (WBC) Count 4.3 10x3/uL (4.8-10.8)
[2023-10-23 22:31] LABS: ALT (SGPT) 23 U/L (8-55); AST (SGOT) 60 U/L (5-34); Albumin 3.8 g/dL (3.5-5.0); Alkaline Phosphatase 64 U/L (40-110); Anion Gap 20 mmol/L (10-20); BUN (Urea Nitrogen) 5 mg/dL (9.8-20.1); Bilirubin, Total 1.1 mg/dL (0.2-1.2); Calc. Creatinine Clearance 0 mL/min (70-130); Calcium 9.4 mg/dL (7.8-10.44); Carbon Dioxide 19 mmol/L (22-29); Chloride 108 mmol/L (98-107); Estimated GFR 39; Globulin 3.3 g/dL (2.4-3.5); Glucose 96 mg/dL (70-105); Magnesium 1.7 mg/dL (1.6-2.6); Potassium 4.1 mmol/L (3.5-5.1); Protein, Total 7.1 g/dL (6.0-8.3); Sodium 143 mmol/L (136-145)
[2023-10-23 22:34] LABS: MDiff Complete? YES; Macrocytosis SLIGHT = 6-15 cells (100X) (0-5/hpf); Platelet Adequacy Comment Appears Adequate
[2023-10-23 22:35] LABS: Base Excess-Venous -3.1 mmol/L (-2.0 to 3.0); Bicarbonate (HCO3v) 22.1 mmol/L (22.0-28.0); CO2 Tension (PvCO2) 39.3 mmHg (42.0-51.0); Calcium, Ionized 1.05 mmol/L (1.15-1.33); Chloride 107 mmol/L (98-107); Hemoglobin - Calc 13.4 g/dL (12.0-16.0); Sodium 140 mmol/L (138-145); T. Carbon Dioxide 23.3 mmol/L (22.0-28.0); vO2 Saturation-calc 82.2 % (60.0-85.0)
[2023-10-23] MEDS ORDERED: Cyclobenzaprine 10 MG TAB ONE (23:11)
== END 2023-10-23 23:55 | disposition home or self-care (01) ==
LOC: BURERS 20:19
DX: G56.21 Lesion of ulnar nerve, right upper limb (principal); R53.83 Other fatigue; I10 Essential (primary) hypertension; E11.40 Type 2 diabetes mellitus with diabetic neuropathy, unspecified
CPT/HCPCS: 36415; 80053; 82330; 82435; 82803; 83735; 84132; 84295; 85014; 85025

== ENCOUNTER 2023-10-26 20:18 | Emergency (ER) | payer BC, OTHER ==
[2023-10-26] MEDS ORDERED: Sulfameth/Trimethoprim DS 800-160mg TAB ONE (20:39)
[2023-10-26] MEDS ORDERED: Amoxicillin/Potassium Clav 875 MG TAB ONE (20:56)
== END 2023-10-26 21:03 | disposition home or self-care (01) ==
LOC: BURERS 20:18
DX: S00.211A Abrasion of right eyelid and periocular area, initial encounter (principal); L03.213 Periorbital cellulitis; E11.40 Type 2 diabetes mellitus with diabetic neuropathy, unspecified; I10 Essential (primary) hypertension
CPT/HCPCS: 99283

== ENCOUNTER 2023-11-03 17:59 | Emergency (ER) | payer BC, OTHER ==
[2023-11-03] MEDS ORDERED: Ketorolac Tromethamine 30 MG (1 mL) VIAL ONE (18:39)
[2023-11-03] MEDS ORDERED: Ketorolac Tromethamine 60 MG/2 ML VIAL ONE (18:40)
== END 2023-11-03 18:50 | disposition home or self-care (01) ==
LOC: BURERS 17:59
DX: F10.20 Alcohol dependence, uncomplicated (principal); E11.42 Type 2 diabetes mellitus with diabetic polyneuropathy; I10 Essential (primary) hypertension; Z55.6 Problems related to health literacy
CPT/HCPCS: 96372; 99283; J1885

== ENCOUNTER 2023-12-10 14:34 | Emergency (ER) | payer BC, OTHER ==
[2023-12-10] MEDS ORDERED: HYDROcodone/Acetaminophen 5/325 mg Tablet ONE (15:08)
== END 2023-12-10 15:50 | disposition home or self-care (01) ==
LOC: BURERS 14:34
DX: S51.012D Laceration without foreign body of left elbow, subsequent encounter (principal); S50.812D Abrasion of left forearm, subsequent encounter; E11.40 Type 2 diabetes mellitus with diabetic neuropathy, unspecified; I10 Essential (primary) hypertension; Z79.899 Other long term (current) drug therapy
CPT/HCPCS: 99282

== ENCOUNTER 2023-12-13 15:33 | Emergency (ER) | payer BC, OTHER ==
[2023-12-13] MEDS ORDERED: HYDROcodone/Acetaminophen 5/325 mg Tablet ONE (16:25)
== END 2023-12-13 16:44 | disposition home or self-care (01) ==
LOC: BURERS 15:33
DX: Z48.00 Encounter for change or removal of nonsurgical wound dressing (principal); E11.40 Type 2 diabetes mellitus with diabetic neuropathy, unspecified; I10 Essential (primary) hypertension

== ENCOUNTER 2023-12-15 17:25 | Emergency (ER) | payer BC, OTHER | END 2023-12-15 18:38 | disposition left against medical advice (07) | LOC: BURERS 17:25 | DX: Z53.21 Procedure and treatment not carried out due to patient leaving prior to being seen by health care provider (principal) ==

== ENCOUNTER 2023-12-28 16:54 | Emergency (ER) | payer BC, OTHER ==
[2023-12-28] MEDS ORDERED: Ibuprofen 200 MG TAB ONE (17:16)
== END 2023-12-28 17:27 | disposition home or self-care (01) ==
LOC: BURERS 16:54
DX: Z48.00 Encounter for change or removal of nonsurgical wound dressing (principal); E11.42 Type 2 diabetes mellitus with diabetic polyneuropathy; I10 Essential (primary) hypertension; Z79.899 Other long term (current) drug therapy
CPT/HCPCS: 99282

== ENCOUNTER 2024-01-01 17:25 | Emergency (ER) | payer BC, OTHER | END 2024-01-01 18:27 | disposition home or self-care (01) | LOC: BURERS 17:25 | DX: S41.102D Unspecified open wound of left upper arm, subsequent encounter (principal); S40.022A Contusion of left upper arm, initial encounter; I10 Essential (primary) hypertension; E11.40 Type 2 diabetes mellitus with diabetic neuropathy, unspecified; X58.XXXA Exposure to other specified factors, initial encounter | CPT/HCPCS: 99283 ==

== ENCOUNTER 2024-01-03 20:51 | Emergency (ER) | payer BC, OTHER ==
[2024-01-03] MEDS ORDERED: Morphine 2 MG/ML VIAL ONE (22:22)
[2024-01-03] MEDS ORDERED: Ondansetron PF 4 MG/2 ML Vial ONE (22:22)
[2024-01-03 22:23] LABS: #Basophils 0.1 thou/uL (0.0-0.2); #Eosinophils 0.2 thou/uL (0.0-0.7); #Monocytes 0.3 thou/uL (0.11-0.59); #Neutrophils 2.9 thou/uL (1.40-6.50); %Basophils 2.2 % (0.0-1.0); %Eosinophils 4.1 % (0.0-10.0); %Lymphocytes 35.8 % (21.0-51.0); %Neutrophils 52.9 % (42.0-75.0); Hematocrit 30.5 % (36.0-47.0); Hemoglobin 9.7 g/dL (12.0-16.0); Mean Corpuscular HGB CONC 31.9 g/dL (32.0-36.0); Mean Corpuscular Hemoglobin 35.4 pg (27.0-31.0); Mean Platelet Volume 5.7 fL (7.4-10.4); Platelet Count 298 10x3/uL (130-400); RBC Distribution Width 13.7 % (11.5-14.5); Red Blood Cell (RBC) Count 2.74 mill/uL (4.20-5.40); White Blood Cell (WBC) Count 5.5 10x3/uL (4.8-10.8)
[2024-01-03 22:35] LABS: Bilirubin Negative (Negative); Blood, Urine Negative (Negative); Clarity Clear (Clear); Glucose, Urine (Dipstick) Negative (Negative); Ketone, Urine Trace mg/dL (Negative); Leukocyte Trace (Negative); Nitrite Negative (Negative); Protein, Urine (Dipstick) Negative (Neg-Trace); Urobilinogen 0.2 mg/dL (Less than 2); pH, Urine 5.5 (5.0-9.0)
[2024-01-03 22:38] LABS: ALT (SGPT) 21 U/L (8-55); AST (SGOT) 46 U/L (5-34); Albumin 4.2 g/dL (3.5-5.0); Alcohol 243.7 mg/dL (Less than 10); Alkaline Phosphatase 76 U/L (40-110); Anion Gap 27 mmol/L (10-20); BUN (Urea Nitrogen) 10 mg/dL (9.8-20.1); Calc. Creatinine Clearance 0 mL/min (70-130); Calcium 9.8 mg/dL (7.8-10.44); Carbon Dioxide 15 mmol/L (22-29); Chloride 100 mmol/L (98-107); Estimated GFR 61; Globulin 3.3 g/dL (2.4-3.5); Lipase 45 U/L (8-78); Potassium 4.3 mmol/L (3.5-5.1); Protein, Total 7.5 g/dL (6.0-8.3); Sodium 138 mmol/L (136-145)
[2024-01-03 22:45] LABS: Amphetamine Not Detected (NotDetected); Barbiturates Screen Not Detected (NotDetected); Benzodiazepine Screen Detected (NotDetected); Cocaine Metabolite Screen Not Detected (NotDetected); Methadone Not Detected (NotDetected); Methamphetamine Not Detected (NotDetected); Opiate Screen Not Detected (NotDetected); Oxycodone Screen Not Detected (NotDetected); Phencyclidine (PCP) Not Detected (NotDetected); THC/Cannabinoid Screen Not Detected (NotDetected); Tricyclic Screen Not Detected (NotDetected)
[2024-01-03 22:51] LABS: Specific Gravity, Urine Less/Equal 1.005 (1.005-1.030)
[2024-01-03 22:57] LABS: Bacteria/HPF None Seen HPF (None Seen); CAUTI Indications for Culture Pelvic or flank pain; RBC/HPF 0-3 HPF (0-3); WBC/HPF None Seen HPF (0-3)
[2024-01-03 22:59] LABS: Urine Culture Reflex No No
[2024-01-03 23:02] LABS: Critical Call Chemistry ERS.AK1@2300; Glucose 49 mg/dL (70-105)
== END 2024-01-04 01:49 | disposition home or self-care (01) ==
LOC: BURERS 20:51
DX: S16.1XXA Strain of muscle, fascia and tendon at neck level, initial encounter (principal); S29.012A Strain of muscle and tendon of back wall of thorax, initial encounter; S80.12XA Contusion of left lower leg, initial encounter; S80.11XA Contusion of right lower leg, initial encounter; S40.022A Contusion of left upper arm, initial encounter; S40.021A Contusion of right upper arm, initial encounter; F10.129 Alcohol abuse with intoxication, unspecified; I10 Essential (primary) hypertension; E11.40 Type 2 diabetes mellitus with diabetic neuropathy, unspecified; E11.649 Type 2 diabetes mellitus with hypoglycemia without coma; V43.53XA Car driver injured in collision with pick-up truck in traffic accident, initial encounter; W22.11XA Striking against or struck by driver side automobile airbag, initial encounter; Y93.89 Activity, other specified; Y92.89 Other specified places as the place of occurrence of the external cause; Y90.8 Blood alcohol level of 240 mg/100 ml or more
CPT/HCPCS: 36415; 70450; 71260; 72125; 74177; 80053; 80306; 80307; 81001; 83690; 85025; 96361; 96374; 96375; G0390; J2272; J2405

== ENCOUNTER 2024-01-05 14:55 | Emergency (ER) | payer BC, OTHER | END 2024-01-05 15:25 | disposition left against medical advice (07) | LOC: BURERS 14:55 | DX: F10.129 Alcohol abuse with intoxication, unspecified (principal); R55 Syncope and collapse; E11.42 Type 2 diabetes mellitus with diabetic polyneuropathy; I10 Essential (primary) hypertension | CPT/HCPCS: 94760; 99283 ==

== ENCOUNTER 2024-03-03 13:23 | Emergency (ER) | payer BC, OTHER ==
[2024-03-03 14:14] LABS: #Basophils 0.1 thou/uL (0.0-0.2); #Lymphocytes 1.5 thou/uL (1.20-3.40); #Monocytes 0.3 thou/uL (0.11-0.59); #Neutrophils 7.3 thou/uL (1.40-6.50); %Basophils 0.8 % (0.0-1.0); %Eosinophils 0.1 % (0.0-10.0); %Lymphocytes 16.6 % (21.0-51.0); %Monocytes 3.1 % (0.0-10.0); %Neutrophils 79.5 % (42.0-75.0); Hematocrit 43.3 % (36.0-47.0); Hemoglobin 13.4 g/dL (12.0-16.0); Mean Corpuscular HGB CONC 30.8 g/dL (32.0-36.0); Mean Corpuscular Hemoglobin 34.7 pg (27.0-31.0); Mean Platelet Volume 7.6 fL (7.4-10.4); Platelet Count 177 10x3/uL (130-400); Red Blood Cell (RBC) Count 3.85 mill/uL (4.20-5.40); White Blood Cell (WBC) Count 9.2 10x3/uL (4.8-10.8)
[2024-03-03 14:18] LABS: MDiff Complete? YES; Macrocytosis SLIGHT = 6-15 cells (100X) (0-5/hpf); Platelet Adequacy Comment Appears Adequate
[2024-03-03 14:21] LABS: ALT (SGPT) 13 U/L (8-55); AST (SGOT) 58 U/L (5-34); Albumin 4.1 g/dL (3.5-5.0); Alcohol 114.4 mg/dL (Less than 10); Alkaline Phosphatase 69 U/L (40-110); Anion Gap 34 mmol/L (10-20); BUN (Urea Nitrogen) 19 mg/dL (9.8-20.1); Bilirubin, Total 0.6 mg/dL (0.2-1.2); CK (CPK) 71 U/L (29-168); Calc. Creatinine Clearance 0 mL/min (70-130); Calcium 9.5 mg/dL (7.8-10.44); Chloride 107 mmol/L (98-107); Estimated GFR 38; Globulin 3.7 g/dL (2.4-3.5); Glucose 212 mg/dL (70-105); Lipase 30 U/L (8-78); Magnesium 1.7 mg/dL (1.6-2.6); Potassium 3.6 mmol/L (3.5-5.1); Protein, Total 7.8 g/dL (6.0-8.3); Sodium 146 mmol/L (136-145); Troponin I Less than 0.010 ng/mL (< 0.028)
[2024-03-03 14:24] LABS: Carbon Dioxide 9 mmol/L (22-29); Critical Call Chemistry ERS.KB5 @ 1422
[2024-03-03 15:07] LABS: Critical Call Chem-Lactate ERS.KB5 @ 1506
[2024-03-03] MEDS ORDERED: Cefepime 2 GM VIAL ONE (15:12)
[2024-03-03 15:19] LABS: Bilirubin Negative (Negative); Blood, Urine Negative (Negative); Clarity Clear (Clear); Glucose, Urine (Dipstick) 100 mg/dL (Negative); Ketone, Urine 40 mg/dL (Negative); Leukocyte Negative (Negative); Nitrite Negative (Negative); Protein, Urine (Dipstick) 30 mg/dL (Neg-Trace); Specific Gravity, Urine 1.025 (1.005-1.030); Urobilinogen 0.2 mg/dL (Less than 2); pH, Urine 5.5 (5.0-9.0)
[2024-03-03 15:23] LABS: Acetaminophen Less than 10 mcg/mL (Less than 10); Alcohol 110.3 mg/dL (Less than 10); Salicylate Less than 8.0 mg/dL (Less than 8.0)
[2024-03-03 15:34] LABS: Base Excess-Venous -20.4 mmol/L (-2.0 to 3.0); Bicarbonate (HCO3v) 10.5 mmol/L (22.0-28.0); CO2 Tension (PvCO2) 42.3 mmHg (42.0-51.0); Calcium, Ionized 1.05 mmol/L (1.15-1.33); Chloride 117 mmol/L (98-107); Hemoglobin - Calc 15.3 g/dL (12.0-16.0); Potassium 3.5 mmol/L (3.5-5.1); Sodium 145 mmol/L (138-145); T. Carbon Dioxide 11.8 mmol/L (22.0-28.0); vO2 Saturation-calc 81.1 % (60.0-85.0)
[2024-03-03 15:36] LABS: Bacteria/HPF 2+ HPF (None Seen); CAUTI Indications for Culture Alt mental st,lethar; RBC/HPF None Seen HPF (0-3); WBC/HPF None Seen HPF (0-3)
[2024-03-03] MEDS ORDERED: Thiamine HCl 200 MG/2 ML VIAL ONE (15:36)
[2024-03-03] MEDS ORDERED: Ondansetron PF 4 MG/2 ML Vial ONE (15:36)
[2024-03-03 15:37] LABS: Urine Culture Reflex No No
[2024-03-03] MEDS ORDERED: Pantoprazole 40 MG VIAL ONE (15:37)
[2024-03-03] MEDS ORDERED: fentaNYL 50 mcg/mL 1 mL Vial ONE (17:19)
[2024-03-03 17:41] LABS: Critical Call Chem-Lactate ERS.KB5 @ 1740
== END 2024-03-03 17:46 | disposition short-term general hospital (02) ==
LOC: BURERS 13:23
DX: E11.649 Type 2 diabetes mellitus with hypoglycemia without coma (principal); T68.XXXA Hypothermia, initial encounter; R65.10 Systemic inflammatory response syndrome (SIRS) of non-infectious origin without acute organ dysfunction; E87.20 Acidosis, unspecified; E11.40 Type 2 diabetes mellitus with diabetic neuropathy, unspecified; I10 Essential (primary) hypertension; F10.20 Alcohol dependence, uncomplicated; Y90.5 Blood alcohol level of 100-119 mg/100 ml
CPT/HCPCS: 36416; 51701; 70450; 71250; 74176; 80053; 80307; 81001; 82140; 82330; 82550; 82803; 83605; 83690; 83735; 84484; 85025; 87040; 87428; 93005; 96361; 96365; 96375; 36415-59; J0692; J2405; J2470; J3010; J3411

== ENCOUNTER 2024-04-05 13:46 | Emergency (ER) | payer BC, OTHER | END 2024-04-05 14:21 | disposition home or self-care (01) | LOC: BURERS 13:46 | DX: R55 Syncope and collapse (principal); F10.129 Alcohol abuse with intoxication, unspecified; I10 Essential (primary) hypertension; E11.40 Type 2 diabetes mellitus with diabetic neuropathy, unspecified; Z55.6 Problems related to health literacy | CPT/HCPCS: 93005; 99284 ==

== ENCOUNTER 2024-04-06 13:29 | Emergency (ER) | payer BC, OTHER | END 2024-04-06 14:53 | disposition left against medical advice (07) | LOC: BURERS 13:29 | DX: Z53.21 Procedure and treatment not carried out due to patient leaving prior to being seen by health care provider (principal) | CPT/HCPCS: 71045 ==

== ENCOUNTER 2024-08-26 13:55 | Emergency (ER) | payer OTHER, BC ==
[2024-08-26 15:08] LABS: #Basophils 0.1 thou/uL (0.0-0.2); #Eosinophils 0.0 thou/uL (0.0-0.7); #Lymphocytes 0.9 thou/uL (1.20-3.40); #Monocytes 1.0 thou/uL (0.11-0.59); #Neutrophils 9.0 thou/uL (1.40-6.50); %Basophils 0.5 % (0.0-1.0); %Eosinophils 0.0 % (0.0-10.0); %Lymphocytes 8.3 % (21.0-51.0); %Monocytes 8.9 % (0.0-10.0); %Neutrophils 82.4 % (42.0-75.0); Hematocrit 36.3 % (36.0-47.0); Hemoglobin 11.3 g/dL (12.0-16.0); Mean Corpuscular Hemoglobin 35.8 pg (27.0-31.0); Mean Corpuscular Volume 114.0 fl (78.0-98.0); Platelet Count 148 10x3/uL (130-400); Red Blood Cell (RBC) Count 3.17 mill/uL (4.20-5.40); White Blood Cell (WBC) Count 10.9 10x3/uL (4.8-10.8)
[2024-08-26 15:16] LABS: ALT (SGPT) 11 U/L (Less than 34); AST (SGOT) 24 U/L (11-34); Albumin 3.3 g/dL (3.1-4.5); Alkaline Phosphatase 41 U/L (40-110); Anion Gap 25 mmol/L (10-20); BUN (Urea Nitrogen) 17 mg/dL (9.8-20.1); Bilirubin, Total 2.8 mg/dL (0.3-1.2); Calc. Creatinine Clearance 0 mL/min (70-130); Calcium 8.5 mg/dL (7.8-10.44); Carbon Dioxide 17 mmol/L (22-29); Chloride 97 mmol/L (98-107); Globulin 4.3 g/dL (2.4-3.5); Glucose 86 mg/dL (70-105); Potassium 4.4 mmol/L (3.5-5.1); Sodium 135 mmol/L (136-145)
[2024-08-26 15:18] LABS: Troponin I 0.084 ng/mL (< 0.028)
[2024-08-26 15:20] LABS: MDiff Complete? YES; Macrocytosis SLIGHT = 6-15 cells (100X) (0-5/hpf); Platelet Adequacy Comment Appears Adequate
== END 2024-08-26 20:20 | disposition short-term general hospital (02) ==
LOC: BURERS 13:55
DX: A41.9 Sepsis, unspecified organism (principal); R65.21 Severe sepsis with septic shock; N17.9 Acute kidney failure, unspecified; R79.89 Other specified abnormal findings of blood chemistry; I10 Essential (primary) hypertension; E11.42 Type 2 diabetes mellitus with diabetic polyneuropathy; Z79.899 Other long term (current) drug therapy
CPT/HCPCS: 36415; 71045; 80053; 83605; 84484; 85025; 87040; 93005; 96361; 96365; J2543